=== PATIENT | female | born 1980 | race Two or more races ===

== ENCOUNTER 2023-08-12 11:24 | Emergency (ER) | payer MEDICAID ==
[~2023-08-12] VITALS: Ht 165.1 cm; Wt 81.5 kg
[2023-08-12] MEDS ORDERED: KETOROLAC TROMETH 60MG/2ML VIAL IM ONE (14:00)
[2023-08-12] MEDS: ONDANSETRON ODT 4 MG TAB PO ONE ×2 (14:32→14:36)
[2023-08-12] MEDS ORDERED: NAPR-1334 PO (16:09)
[2023-08-12 16:29] VITALS: BP 113/73; PULSE 62; RESP 18; TEMP 98; O2SAT 98
== END 2023-08-12 16:32 | disposition home or self-care (01) ==
LOC: ER 11:24
DX: S60.212A Contusion of left wrist, initial encounter (principal); S00.83XA Contusion of other part of head, initial encounter; S20.212A Contusion of left front wall of thorax, initial encounter; E11.9 Type 2 diabetes mellitus without complications; Z88.1 Allergy status to other antibiotic agents; W11.XXXA Fall on and from ladder, initial encounter; Y93.89 Activity, other specified; Y92.89 Other specified places as the place of occurrence of the external cause; Y99.8 Other external cause status
CPT/HCPCS: 70486; 71046; 73090; 73110; 73130; 96372; 99285; J1885; Q0162

== ENCOUNTER 2024-05-21 14:43 | Emergency (ER) | payer MEDICAID ==
[~2024-05-21] VITALS: Ht 165.1 cm; Wt 77.8 kg
[~2024-05-21 14:43] MED LIST: NAPR-1335 PO
[2024-05-21] MEDS: DONNATAL 5ml ORAL Elix (BELLADONNA ALK-PHENOBARB) PO ONE (15:45)
[2024-05-21 16:17] LABS: Urine Bacteria FEW /hpf (None Seen); Urine Blood 1+ /uL (Negative); Urine Clarity Turbid (Clear); Urine Color Yellow (Yellow); Urine Mucus FEW (None Seen); Urine Protein, UAD TRACE (Negative); Urine Specific Gravity 1.032 (1.001-1.035); Urine Urobilinogen Normal (Negative); Urine WBC 5 /hpf (0 - 5); Urine pH 5.5 (5.0-9.0)
[2024-05-21 17:04] LABS: Basophils # (auto) 0 10 ^3/uL (0-0.2); Basophils % (auto) 0.3 % (0.0-2.0); Eosinophils # (auto) 0.1 10 ^3/uL (0-0.8); Hematocrit 39.7 % (36.0-46.0); Hemoglobin 13.5 g/dL (12.2-16.2); Lymphocytes % (auto) 10.2 % (10.0-50.0); Mean Corpuscular Hemoglobin 27.4 pg (28.0-32.0); Mean Corpuscular Volume 80.5 fL (80.0-100.0); Monocytes # (auto) 0.8 10 ^3/uL (0-1.3); Neutrophils # (auto) 8.1 10 ^3/uL (1.6-8.6); Neutrophils % (auto) 80.5 % (37.0-80.0); Nucleated Red Blood Cells % 0.1 %; Red Blood Cells 4.92 10^6/uL (4.0-5.20); Red Cell Distribution Width 12.4 % (11.8-14.3)
[2024-05-21 17:22] LABS: Alanine Aminotransferase 16 U/L (7-40); Albumin 3.9 g/dL (3.2-4.8); Alkaline Phosphatase 102 U/L (46-116); Anion Gap 9 (5-15); Aspartate Aminotransferase 24 U/L (13-40); BUN/Creatinine Ratio 18.8 (10.0-20.0); Blood Urea Nitrogen 13 mg/dL (9-23); Calcium 9.5 mg/dL (8.7-10.4); Carbon Dioxide 23 mmol/L (20-30); Chloride 107 mmol/L (98-107); Glucose 125 mg/dL (74-106); Lipase 38 U/L (12-53); Potassium 3.8 mmol/L (3.5-5.1); Sodium 139 mmol/L (136-145)
[2024-05-21 17:23] LABS: Bilirubin, Total 0.5 mg/dL (0.2-1.0); Total Protein 6.4 g/dL (5.7-8.2)
[2024-05-21] MEDS ORDERED: CEPH250C PO (17:54)
[2024-05-21 18:10] VITALS: BP 120/67; PULSE 81; RESP 18; TEMP 99; O2SAT 98
[2024-05-21] MEDS: MAALOX PLUS or MAALOX 30 ML PO ONE (18:13)
[2024-05-21] MEDS: LIDOCAINE VISCOUS 2% 15ML UD PO ONE (18:13)
[2024-05-21] MEDS: ONDANSETRON ODT 4 MG TAB PO ONE (18:14)
== END 2024-05-23 18:21 | disposition home or self-care (01) ==
LOC: ER 14:43
DX: N39.0 Urinary tract infection, site not specified (principal); R10.2 Pelvic and perineal pain; R18.8 Other ascites; E11.9 Type 2 diabetes mellitus without complications; Z88.1 Allergy status to other antibiotic agents
CPT/HCPCS: 36415; 76705; 80053; 81001; 83690; 84702; 85025; 99284; Q0162